=== PATIENT | male | born 1990 | race Caucasian/White ===

== ENCOUNTER 2021-03-29 12:24 | Inpatient (IN) | payer MEDICAID ==
[~2021-03-29] VITALS: Ht 180.3 cm; Wt 78.0 kg
[2021-03-29] MEDS ORDERED: HALOPERIDOL 5 MG TABLET PO PRN (12:30)
[2021-03-29 18:40] VITALS: BP 114/61
[2021-03-30] VITALS (8 sets, daily range): BP systolic 102–115; BP diastolic 61–75
[2021-03-30] MEDS: LORazepam 2 MG TABLET PO PRN ×2 (00:08→11:11)
[2021-03-30] MEDS: ZOLPIDEM TARTRATE 10 MG TABLET PO PRN (00:08)
[2021-03-30 07:37] LABS: BASOPHILS % (AUTO) 0.4 % (0.0-2.0); EOSINOPHILS % (AUTO) 3.6 % (1.0-6.0); HEMATOCRIT 46.3 % (41-53); HEMOGLOBIN 15.7 g/dL (13.5-17.5); LYMPHOCYTES % (AUTO) 28.9 % (22.0-44.0); MEAN CORPUSCULAR HGB CONC 33.9 G/dL (31.0-37.0); MEAN CORPUSCULAR VOLUME 94 fL (80-100); MONOCYTES # (AUTO) 0.8 K/uL (0.1-1.0); MONOCYTES % (AUTO) 11.6 % (2.0-9.0); NEUTROPHILS # (AUTO) 3.8 K/uL (1.8-7.7); NEUTROPHILS % (AUTO) 55.5 % (40.0-70.0); PLATELET COUNT (AUTO) 225 K/uL (150-450); RED BLOOD CELL COUNT(AUTO) 4.91 MIL/uL (4.50-5.90); RED CELL DISTRIBUTION WIDTH 12.4 % (11.5-14.5)
[2021-03-30 07:53] LABS: ANION GAP 6 mmol/L (8-16); CARBON DIOXIDE 33 mmol/L (22-29); CHLORIDE 105 mmol/L (98-107); HEMOGLOBIN A1C 5.1 % (3.8-5.6); POTASSIUM 4.1 mmol/L (3.5-5.1); SODIUM SERUM 144 mmol/L (136-145)
[2021-03-30] MEDS ORDERED: ACETAMINOPHEN 325 MG TABLET PO PRN (08:00)
[2021-03-30] MEDS ORDERED: LOPERAMIDE HCL 2 MG CAPSULE PO PRN (08:00)
[2021-03-30] MEDS ORDERED: ALBUTEROL SULFATE HFA 90 MCG/PUFF 8 GM INHALER IH PRN (08:00)
[2021-03-30] MEDS ORDERED: DOCUSATE SODIUM 100 MG CAPSULE PO PRN (08:00)
[2021-03-30] MEDS ORDERED: ONDANSETRON HCL 4 MG TABLET PO PRN (08:00)
[2021-03-30] MEDS ORDERED: MAGNESIUM HYDROXIDE SUSPENSION 30 ML UDCUP PO PRN (08:00)
[2021-03-30] MEDS ORDERED: GuaiFENesin/D-METHORPHAN [SUGAR-FREE] 200-20MG/10 ML SYRUP UDCUP PO PRN (08:00)
[2021-03-30] MEDS ORDERED: IBUPROFEN 400 MG TABLET PO PRN (08:00)
[2021-03-30] MEDS ORDERED: MAG HYDROX/AL HYDROX/SIMETH ES 30 ML SUSPENSION UDCUP PO PRN (08:00)
[2021-03-30] MEDS ORDERED: PETROLATUM,WHITE 28 GM JELLY TP PRN (08:00)
[2021-03-30] MEDS ORDERED: CloNIDine HCL 0.1 MG TABLET PO PRN (08:00)
[2021-03-30 08:13] LABS: ALANINE AMINOTRANSFERASE 27 U/L (12-78); ALBUMIN 3.5 g/dL (3.4-5.0); ALKALINE PHOSPHATASE 96 U/L (46-116); ASPARTATE AMINOTRANSFERASE 19 U/L (15-37); BILIRUBIN,TOTAL 0.4 mg/dL (0.1-1.0); CALCIUM, TOTAL 9.6 mg/dL (8.8-10.5); CHOLESTEROL 156 mg/dL (131-200); CREATININE 0.88 mg/dL (0.60-1.30); FREE T4 (FREE THYROXINE) 0.74 ng/dL (0.76-1.46); GLOMERULAR FILTR. RATE CALC > 60 mL/min (>60); GLUCOSE,RANDOM 97 mg/dL (70-110); HDL CHOLESTEROL 52 mg/dL (40-60); LDL CHOL (CALC.) 64 mg/dL (0-130); THYROID STIMULATING HORMONE 1.22 uIU/mL (0.36-3.74); TOTAL PROTEIN, SERUM 7.1 g/dL (6.4-8.2); TRIGLYCERIDES 198 mg/dL (15-150); UREA NITROGEN, BLOOD 15 mg/dL (7-18)
[2021-03-30] MEDS ORDERED: NICOTINE 14 MG/24 HOUR PATCH TD SCH (09:00)
[2021-03-30] MEDS ORDERED: LORazepam 2 MG TABLET PO PRN (14:30)
[2021-03-30] MEDS ORDERED: CYANOCOBALAMIN 1,000 MCG/ML VIAL IM ONE (14:30)
[2021-03-30] MEDS: FOLIC ACID 1 MG TABLET PO SCH (14:42)
[2021-03-30] MEDS: MULTIVITAMINS WITH MINERALS, THERAPEUTIC TABLET PO SCH (14:42)
[2021-03-30] MEDS: THIAMINE 100 MG TABLET PO SCH (17:23)
[2021-03-31] VITALS (11 sets, daily range): BP systolic 105–119; BP diastolic 61–77
[2021-03-31] MEDS: LEVOTHYROXINE SODIUM 25 MCG TABLET PO SCH (06:48)
[2021-03-31] MEDS ORDERED: LORazepam 2 MG TABLET PO PRN (07:00)
[2021-03-31] MEDS: LORazepam 2 MG TABLET PO SCH ×4 (08:20→20:32)
[2021-03-31] MEDS: FOLIC ACID 1 MG TABLET PO SCH (08:21)
[2021-03-31] MEDS: MULTIVITAMINS WITH MINERALS, THERAPEUTIC TABLET PO SCH (08:22)
[2021-03-31] MEDS: THIAMINE 100 MG TABLET PO SCH ×2 (08:22→16:48)
[2021-03-31] MEDS: NICOTINE 14 MG/24 HOUR PATCH TD PRN (10:13)
[2021-03-31] MEDS: ZOLPIDEM TARTRATE 10 MG TABLET PO PRN (22:02)
[2021-04-01 01:22] VITALS: BP 115/62
[2021-04-01] MEDS: LEVOTHYROXINE SODIUM 25 MCG TABLET PO SCH (06:37)
[2021-04-01 08:53] VITALS: BP 106/62
[2021-04-01] MEDS: MULTIVITAMINS WITH MINERALS, THERAPEUTIC TABLET PO SCH (09:51)
[2021-04-01] MEDS: LORazepam 2 MG TABLET PO SCH ×4 (09:51→21:19)
[2021-04-01] MEDS: THIAMINE 100 MG TABLET PO SCH ×2 (09:51→16:46)
[2021-04-01] MEDS: FOLIC ACID 1 MG TABLET PO SCH (09:51)
[2021-04-01 13:11] VITALS: BP 106/62
[2021-04-01 16:33] VITALS: BP 110/69
[2021-04-01 16:44] VITALS: BP 110/69
[2021-04-01] MEDS: SERTRALINE HCL 50 MG TABLET PO SCH (16:46)
[2021-04-01] MEDS: NICOTINE 14 MG/24 HOUR PATCH TD PRN (17:16)
[2021-04-01 21:13] VITALS: BP 114/72
[2021-04-02 00:01] VITALS: BP 117/65
[2021-04-02] MEDS: ZOLPIDEM TARTRATE 10 MG TABLET PO PRN (00:04)
[2021-04-02 01:11] VITALS: BP 117/65
[2021-04-02 05:29] VITALS: BP 110/77
[2021-04-02] MEDS: LEVOTHYROXINE SODIUM 25 MCG TABLET PO SCH (06:43)
[2021-04-02] MEDS ORDERED: LORazepam 1 MG TABLET PO PRN (07:00)
[2021-04-02] MEDS ORDERED: LORazepam 1 MG TABLET PO SCH (09:00)
[2021-04-02 09:30] VITALS: BP 113/62
[2021-04-02 09:50] VITALS: BP 113/62
[2021-04-02] MEDS: THIAMINE 100 MG TABLET PO SCH (09:58)
[2021-04-02] MEDS: MULTIVITAMINS WITH MINERALS, THERAPEUTIC TABLET PO SCH (09:58)
[2021-04-02] MEDS: SERTRALINE HCL 50 MG TABLET PO SCH (09:58)
[2021-04-02] MEDS: FOLIC ACID 1 MG TABLET PO SCH (09:58)
[2021-04-02 10:16] VITALS: BP 113/62
[2021-04-02] MEDS ORDERED: SERT-439 PO (12:23)
[2021-04-02] MEDS ORDERED: LEVO25TA9 PO (12:41)
[2021-04-03] MEDS ORDERED: LORazepam 1 MG TABLET PO PRN (07:00)
== END 2021-04-02 14:30 | disposition home or self-care (01) | DRG 751 ==
LOC: B2S 15:58
DX: F33.2 Major depressive disorder, recurrent severe without psychotic features (principal); R45.851 Suicidal ideations; Z91.14 Patient's other noncompliance with medication regimen; E78.5 Hyperlipidemia, unspecified; E03.9 Hypothyroidism, unspecified; F17.200 Nicotine dependence, unspecified, uncomplicated; F41.9 Anxiety disorder, unspecified; G44.209 Tension-type headache, unspecified, not intractable; Z91.5 Personal history of self-harm
CPT/HCPCS: 80053; 80061; 83036; 84436; 84439; 84443; 85025; G0480; J3420